=== PATIENT | female | born 1945 | race Two or more races ===

== ENCOUNTER 2025-02-09 13:02 | Emergency (ER) | payer MEDICAID, SELFPAY ==
[2025-02-09 13:06] VITALS: BP 134/82; PULSE 100; RESP 19; TEMP 36.7; O2SAT 99
[2025-02-09 13:08] VITALS: PULSE 99; O2SAT 98; BMI 25.6
--- NOTE | 2025-02-09 13:30 | XR_ITS ---
Examination: AP chest single view Technique one AP upright chest single view Exam date and time: February 09, 2025 1401 hours INDICATIONS: Onset chest pain today FINDINGS: Minimal rounding left ventricle No pneumonia or pulmonary edema Generator with neural transmitter wires overlying right neck and chest Moderate osteopenia IMPRESSION: No active disease
--- NOTE | 2025-02-09 13:30 | EKG_ITS ---
[facility] Test Date: 2025-02-09 Pat Name: LYDIA MACARIO Department: Room: - Gender: Female Building Coordinator: : 1945 Requested By: Jose Corrales ([facility]) Order Number: [id number] Reading MD: Jose Corrales ([facility]) Measurements Intervals [place] Rate: 100 P: SD: QRS: 24 QRSD: 94 T: -4 QT: 392 QTc: 507 Interpretive Statements ATRIAL FLUTTER/TACHYCARDIA WITH RAPID VENTRICULAR RESPONSE POSSIBLE ANTERIOR MYOCARDIAL INFARCTION , OF INDETERMINATE AGE [30 ms Q WAVE IN V3/V4, OR R < 0.2 mV IN V4] MODERATE T-WAVE ABNORMALITY, CONSIDER INFERIOR ISCHEMIA [-0.1+ mV T-WAVE IN II/aVF] No previous ECG available for comparison /[id number]/[id number].pdf
--- NOTE | 2025-02-09 13:33 | PD.EDRME ---
Rapid Medical Screening Exam RME Arrival date/time: 02/09/25 13:02 79-year-old female presents to the emergency department today for complaint of abdominal pain Chief Complaint: Abdominal Pain Vital signs: Vital Signs Temperature 98.1 F 02/09/25 13:06 Pulse Rate 100 02/09/25 13:06 Respiratory Rate 19 02/09/25 13:06 Blood Pressure 134/82 H 02/09/25 13:06 Pulse Oximetry (%) 99 02/09/25 13:06 Oxygen Delivery Method Room Air 02/09/25 13:06
[2025-02-09 13:54] LABS: Collection Type, Urine Clean Catch
[2025-02-09 14:01] LABS: Basophils % (Auto) 1 % (0-2.5); Eosinophils # (Auto) 0.1 Thou/mm3 (0.0-0.5); Eosinophils % (Auto) 1 % (0-10); Hemoglobin 13.6 g/dL (12.0-16.0); Immature Granulocytes % (Auto) 0 % (0-0); Immature Granulocytes Auto 0.02 Thou/mm3 (0.00-0.00); Lymphocytes # (Auto) 2.8 Thou/mm3 (1.0-4.8); Lymphocytes % (Auto) 41 % (10-50); Mean Corpuscular HGB Conc 31.6 g/dl (31.0-37.0); Mean Corpuscular Hemoglobin 28.9 pg (25.0-35.0); Mean Corpuscular Volume 91 fL (80-100); Monocytes # (Auto) 0.5 Thou/mm3 (0.0-0.8); Monocytes % (Auto) 7 % (0-12); Neutrophils # (Auto) 3.5 Thou/mm3 (1.8-7.7); Neutrophils % (Auto) 51 % (37-80); Nucleated Red Blood Cell % 0 /100 WBC (0); Platelet Count 205 Thou/mm3 (140-440); RDW Standard Deviation 45.3 fL (36.4-46.3); Red Blood Count 4.71 Miln/mm3 (4.00-5.20)
[2025-02-09 14:19] LABS: Partial Thromboplastin Time 25.7 Seconds (22.0-36.0); Prothrombin Time 10.9 Seconds (9.0-12.2)
[2025-02-09 14:19] LABS: Bilirubin,Urine Negative (Negative); Blood,Urine Trace (Negative); Clarity,Urine Clear (Clear/Hazy); Color,Urine Lt-Yellow (Lt Yel-Yel); Glucose, Urine Trace (Negative); Ketones,Urine Negative (Negative); Leukocyte Esterase,Urine Negative (Negative); Nitrite,Urine Negative (Negative); PH,Urine 5.5 (5.0-7.0); Protein,Urine Negative (Neg - Trace); RBC,Urine 1 /hpf (0-3); Specific Gravity,Urine 1.025 (1.001-1.035); Squamous Epithelial Cell,Urine 1 /hpf (0-5); Urobilinogen,Urine Negative mg/dL (0.0-1.0); WBC,Urine 1 /hpf (0-5)
[2025-02-09 14:20] LABS: B-Type Natriuretic Peptide 26 pg/mL (0-100)
[2025-02-09 14:32] LABS: Alanine Aminotransferase 7 U/L (10-49); Albumin, Serum 4.5 gm/dL (3.4-4.8); Albumin/Globulin Ratio 1.4 (1.2-2.2); Alkaline Phosphatase 89 U/L (46-116); Anion Gap 9 (7-16); Aspartate Amino Transferase 15 U/L (0-34); BUN/Creatinine Ratio 31 Ratio (12-20); Bilirubin,Total 0.5 mg/dL (0.3-1.2); Blood Urea Nitrogen 22 mg/dL (9-23); Calcium 9.2 mg/dL (8.3-10.6); Calcium (Corrected) 9.2 mg/dL (8.5-10.1); Carbon Dioxide 25.9 mMol/L (20.0-31.0); Chloride 107 mMol/L (98-107); Creatinine (Component) 0.7 mg/dL (0.6-1.3); Estimated Creatinine Clearance 58.9 mL/min (>60); Globulin 3.3 gm/dL (2.3-3.5); Glucose 174 mg/dL (74-106); Lipase 44 U/L (12-53); Magnesium 1.9 mg/dL (1.6-2.6); Osmolality,Calculated 290 (275-295); Potassium 3.6 mMol/L (3.4-5.1); Sodium 142 mMol/L (136-145); Total Protein 7.8 gm/dL (5.7-8.2); Troponin I < 0.002 ng/mL (0.0-0.045); eGFR > 60 See Note
[2025-02-09 14:51] VITALS: BP 125/70; PULSE 100; RESP 19; TEMP 36.8; O2SAT 97
--- NOTE | 2025-02-09 14:59 | EDNOTE_ITS ---
<Statement entered by Hail Russell MD - 02/13/25 05:26> As co-signing physician, I was present and available for consult prn. I concur with the plan and care as documented by the midlevel provider. ED General RME/HPI General Chief complaint: Abdominal Pain Stated complaint: ABDOMINAL APIN Time Seen by Provider: 02/09/25 14:48 Arrival date/time: 02/09/25 13:02 CC: Abdominal pain HPI patient presents the ER via EMS with abdominal pain however at the time of the exam the patient is completely free of pain, the patient has no complaints whatsoever son at bedside states the patient is overdue for her Parkinson's medications but she has no complaints and wants to go home. Patient is awake alert responding to questions baseline per the son at bedside who is translating. RME / HPI RME / HPI narrative: 02/09/25 13:02 79-year-old female presents to the emergency department today for complaint of abdominal pain Related Data Allergies Allergy/AdvReac Type Severity Reaction Status Date / Time No Known Allergies Allergy Verified 02/09/25 13:13 Review of Systems Review of Systems Narrative Review of Systems: GEN: No fever, no chills, no weight loss EYES: No discharge, no visual changes, no pain HEENT: No ear pain, no congestion, no sore throat PULM: No shortness of breath, no cough, no congestion CV: No chest pain, no dyspnea on exertion, no palpitations GI: No nausea, no vomiting, no diarrhea, no pain, no constipation : No frequency, no urgency, no dysuria MUSC/SKEL: No joint pain, no back pain SKIN: No rash PSYCH: No hallucinations, no depression HEME/LYMPH: No easy bleeding or bruising tendencies NEURO: No weakness, no headache Past Medical History Social History SMOKING STATUS: Never smoker ED Exam Narrative Physical exam: [General: Deconditioned but not in any acute distress Head normocephalic HEENT: Within acceptable limits Neck is supple nontender Chest equal chest rise nontender to palpation Respiratory: Clear to auscultation no wheezes crackles or rubs CV: Rate rhythm is regular no murmurs rubs or clicks Abdomen is soft nontender no masses positive bowel sounds all 4 quadrants Back: No CVA tenderness no spinous process tenderness from cervical spine thoracic and lumbar spine Skin: Intact no petechiae rash induration ulceration or crepitus Extremities: Moving all extremity against resistance cap refill less than 2 seconds neurosensory intact Neuro: Awake alert oriented x2, person and place, Glascow coma 15 no focal deficits] Course Course Course Narrative: Unless you are with the patient is here for but all the symptoms resolved patient wants to go home. Son at bedside is within agreement of this plan. Quality Measures none Orders Category Date Time Status EKG (ED ONLY) *Do not use* NOW Care 02/09/25 13:30 Completed EKG (ED Only) Stat Exams 02/09/25 13:30 Draft XR chest 1V portable Stat Exams 02/09/25 13:30 Completed B-Type Natriuretic Peptide Stat Lab 02/09/25 13:52 Completed CBC Stat Lab 02/09/25 13:52 Completed Comprehensive Metabolic Panel Stat Lab 02/09/25 13:52 Completed Lipase Stat Lab 02/09/25 13:52 Completed Magnesium Stat Lab 02/09/25 13:52 Completed Partial Thromboplastin Time Stat Lab 02/09/25 13:52 Completed Prothrombin Time with INR Stat Lab 02/09/25 13:52 Completed Troponin I Stat Lab 02/09/25 13:52 Completed Urinalysis Stat Lab 02/09/25 13:50 Completed Vital Signs Vital signs: Vital Signs Temperature 98.1 F 02/09/25 13:06 Pulse Rate 100 02/09/25 13:06 Respiratory Rate 19 02/09/25 13:06 Blood Pressure 134/82 H 02/09/25 13:06 Pulse Oximetry (%) 99 02/09/25 13:06 Oxygen Delivery Method Room Air 02/09/25 13:06 Discharge Plan Plan Patient Disposition: HOME (Self Care) Patient condition on transfer: Stable Problem List Clinical Impression: Abdominal pain Patient/Caregiver Discharge Instructions Education Materials: Abdominal Pain Print Language: Mohawk Stand Alone Forms: Amanda Award Info., Work/School Release, Patient Portal Info Letter PA/DANIEL Supervising Physician JOAO/DANIEL Supervising Physician: Emmett Beavers ENP [facility] Clinical Information Provided by: patient Medical Records reviewed EMS Meds/Rx considered, not ordered None Labs/Rad/Tests considered, not ordered None Chronic Illness/Social Conditions Explain: Parkinson's EKG EKG Interpretation(s): EKG performed at 1354 shows ventricular rate of 100 QRS of 94 QTc of 449 this is a poor quality EKG secondary to baseline artifact. Labs Lab(s) Interpretation(s): CBC shows no acute leukocytosis anemia thrombocytopenia CMP shows no acute electrolyte imbalances renal impairment other than a glucose of 174 no transaminitis or T. bili elevation Coags within acceptable limits Troponin and BNP are negative Urine is negative for UTI Imaging Imaging Interpretation(s): Chest x-ray shows no active disease interpreted me read by radiology.
== END 2025-02-09 15:12 | disposition home or self-care (01) ==
LOC: SERX 15:19
PROVIDERS: Nurse Practitioner Primary Care; Emergency Provider Emergency Medicine
DX: R10.9 Unspecified abdominal pain (principal); R07.9 Chest pain, unspecified; I48.92 Unspecified atrial flutter; I47.20 Ventricular tachycardia, unspecified
CPT/HCPCS: 36415; 71045; 80053; 81001; 83690; 83735; 83880; 84484; 85025; 85610; 85730; 93005; 99283